=== PATIENT | female | born 1955 | race Hispanic/Latino ===

== ENCOUNTER 2018-06-07 09:44 | Day surgery (SDC) | payer MEDICAID ==
[2018-06-02 10:09] VITALS: BMI 36.2
[2018-06-07 11:00] LABS: EOS % 0.6 % (1.5-5.0); GRAN % 70.8 % (50.0-68.0); HEMOGLOBIN 14.6 g/dL (12.0-16.0); MEAN CORPUSCULAR HEMOGLOBIN 29.1 pg (25.0-35.0); MEAN CORPUSCULAR HGB CONC 32.7 g/dl (31.0-37.0); MEAN PLATELET VOLUME 11.5 fl (7.0-11.0); MONO % 5.4 % (1.0-6.0); RBC 5.01 10^6/uL (3.5-6.1); RED CELL DISTRIBUTION WIDTH 14.2 % (11.5-14.5); WHITE BLOOD COUNT 9.7 10^3/uL (4.5-11.0)
[2018-06-07] MEDS ORDERED: Lidocaine 2% Inj (20ml) ONE (11:00)
[2018-06-07 11:01] LABS: BASO # 0.02 K/mm3 (0.0-2.0); BASO % 0.2 % (0.0-3.0); BLOOD UREA NITROGEN 18 mg/dL (7-21); CALCIUM 9.5 mg/dL (8.4-10.5); EOS # 0.1 (0.0-0.7); GFR NON-AFRICAN AMERICAN > 60; GRAN # 6.88 (1.4-6.5); HDL CHOLESTEROL 48 mg/dL (29-60); LYMPH # 2.2 (1.2-3.4); MONO # 0.5 (0.1-0.6)
[2018-06-07] MEDS ORDERED: Phenylephrine 10 mg/ml Inj ONE (11:01)
[2018-06-07] MEDS ORDERED: Adenosine 90 mg/30mL IV ONE (11:03)
[2018-06-07] MEDS ORDERED: Nitroglycerin 50mg in D5W 50 MG/250 ML BOTTLE IV ONE (11:03)
[2018-06-07] MEDS ORDERED: Iohexol 350mgl/ml 50 ML ONE (11:04)
[2018-06-07] MEDS ORDERED: Iodixanol 320 mg/ml 150 ml Bottle IV ONE (11:04)
[2018-06-07] MEDS ORDERED: Iodixanol 320 MG/ML 100 ML BOTTLE IV ONE (11:04)
[2018-06-07 11:15] LABS: LDL CHOLESTEROL 79 mg/dL (0-129)
[2018-06-07] MEDS ORDERED: Verapamil 2 ML ONE (11:32)
--- NOTE | 2018-06-07 11:51 | CARD ---
APPROVED REPORT Date of service: 06/07/2018 EKG Measurement Heart [id number] <Conclusion> Normal sinus rhythm Possible Left atrial enlargement Nonspecific ST abnormality
[2018-06-07] MEDS ORDERED: Midazolam 2 MG/2 ML VIAL ONE ×3 (13:12→13:26)
[2018-06-07 13:43] LABS: INR 0.97; PARTIAL THROMBOPLASTIN TIME 31.6 Seconds (25.1-36.5); PROTHROMBIN TIME 11.1 SECONDS (9.4-12.5)
[2018-06-07] MEDS ORDERED: Bacitracin 500 Units/gm Oint Foilpak UD TOP ONE (14:16)
[2018-06-07] MEDS ORDERED: Bacitracin 500 Units/gm Oint Foilpak UD ONE (21:44)
[2018-06-07] MEDS ORDERED: Potassium Chloride 20 mEq ER Tab PO ONE (22:40)
[2018-06-08 02:48] VITALS: RESP 20
[2018-06-08 05:47] VITALS: BP 142/70; PULSE 59; TEMP 98.1; O2SAT 95
--- NOTE | 2018-06-08 08:40 | VAS ---
DATE: 06/07/2018 INDICATION: Lupis is a 63-year-old female with past medical history significant for hypertension, obesity, CAD status post angioplasty, stenting of the left anterior descending artery with bioresorbable vascular scaffold done back in 2016 in [facility], who originally underwent an exercise treadmill stress test which showed ST elevation on exercise in inferior leads for which she was brought back to the [facility] for further evaluation and treatment. PROCEDURE PERFORMED: Left heart catheterization with selective left and right coronary angiogram via left radial arterial approach, 6-[place] left radial arterial access. PTCA and stenting of proximal RCA and 90% stenosis with deployment of 3 x 15 [place] drug-eluting stent, regeneration of 90% down to 0% RANDALL-3 flow, 6-[place] left radial artery access, wrist band for hemostasis. ANGIOGRAPHIC FINDINGS: Left main is a large-sized vessel, bifurcates into LAD and left circumflex coronary artery. Left anterior descending is a large-sized vessel, gives off 2 medium-sized diagonal branches, mid LAD. Prior site of bioresorbable vascular scaffold is widely patent with RANDALL-3 flow. Left circumflex runs in the AV groove, gives off a large-sized obtuse marginal branch. Left circumflex has a nonobstructive 55% stenosis in an angulated bend, gives off a tiny obtuse marginal branch, a small obtuse marginal branch which has high-grade stenosis. RCA proximal has 85% to 90% stenosis with ventricularization noted on engagement with a guide, and IV nitroglycerin was given after engagement of the RCA, which did not resolve and lesion was significant at the time and JR-4 guiding catheters were used to engage the RCA. It was wide with [place] wire, subsequently predilated with a 2.5 balloon and subsequently stented with a 3 x 15 [place] drug-eluting stent, regeneration down to 0% RANDALL-3 flow. HEMODYNAMICS: Left ventricular end-diastolic pressure was 10 mmHg. There was no gradient noted upon the aortic valve pullback. There was no AI, no MR. Left ventricular ejection fraction, hyperdynamic 70% to 75%. IMPRESSION: Successful percutaneous transluminal coronary angioplasty and stenting of proximal right coronary artery, high-grade stenosis, deployment of 3 x 15, [place] drug-eluting stent. Prior site of mid LAD bioresorbable vascular scaffold widely patent, mid circumflex moderate stenosis. RECOMMENDATIONS: The patient can be discharged home in 5 hours. We will continue the patient on dual-antiplatelet therapy. Guideline directed therapy for CAD. The patient is to follow with Dr. Castro in [place] office in 2 weeks. Durga Castro MD
== END 2018-06-08 10:13 | disposition home or self-care (01) ==
LOC: CATH 09:44 → 2RSO 13:30 → CATH 06-08 10:13
PROVIDERS: ATTEND Internal Medicine Interventional Cardiology
DX: I25.10 Atherosclerotic heart disease of native coronary artery without angina pectoris (principal); I10 Essential (primary) hypertension; E11.9 Type 2 diabetes mellitus without complications; E78.00 Pure hypercholesterolemia, unspecified; E66.9 Obesity, unspecified; Z95.5 Presence of coronary angioplasty implant and graft; E78.5 Hyperlipidemia, unspecified; R94.39 Abnormal result of other cardiovascular function study; I25.2 Old myocardial infarction; Z88.0 Allergy status to penicillin; Z68.36 Body mass index [BMI] 36.0-36.9, adult
CPT/HCPCS: 36415; 80048; 80061; 82948; 83036; 85025; 85175; 85610; 85730; 86850; 86900; 93005; 93458; 99152; 99153; C1725; C1769 ×2; C1874; C1887; C1894; C9600; J1644 ×2; J2250; J3010; J7040; Q9967 ×3